=== PATIENT | female | born 1980 | race Caucasian/White ===

== ENCOUNTER 2017-09-23 12:26 | Inpatient (IN) | payer BC ==
[2017-09-23] VITALS (32 sets, daily range): BP systolic 79–126; BP diastolic 35–105; PULSE 64–109; RESP 18; TEMP 97.9–98
[~2017-09-23 12:26] MED LIST: IBUP600 PO; PREN0.01 PO
[2017-09-23] MEDS ORDERED: LACTATED RINGER'S 1000 ML INJ 1,000 ML IV SCH (12:58)
[2017-09-23] MEDS ORDERED: LACTATED RINGER'S 1000 ML INJ 1,000 ML IV PRN (12:58)
[2017-09-23] MEDS ORDERED: OXYTOCIN 30 UNITS-500ML PREMIX 500 ML IV ONE (13:00)
[2017-09-23] MEDS ORDERED: CITRIC ACID-SODIUM CITRATE LIQ 30 ML UDC PO SCH (13:00)
[2017-09-23] MEDS ORDERED: SODIUM CHLORID 0.9% 500 ML INJ 500 ML IV PRN (13:00)
[2017-09-23] MEDS ORDERED: MINERAL OIL 10 ML VIAL TOPICAL PRN (13:00)
[2017-09-23] MEDS ORDERED: LIDOCAINE HCL 1% 50 ML VIAL I-DERMAL PRN (13:00)
[2017-09-23] MEDS ORDERED: LIDOCAINE HCL 1% 50 ML VIAL INFIL PRN (13:00)
[2017-09-23] MEDS ORDERED: OXYTOCIN 30 UNITS-500ML PREMIX 500 ML IV PRN (13:00)
[2017-09-23 13:17] LABS: AUTOMATED NEUTROPHIL # 6.6 TH/MM3 (1.8-7.7); BASOPHIL % 0.5 % (0.0-2.0); EOSINOPHIL # 0.1 TH/MM3 (0-0.4); EOSINOPHIL % 1.3 % (0.0-4.0); HEMATOCRIT 34.2 % (35.0-46.0); HEMOGLOBIN 11.6 GM/DL (11.6-15.3); LYMPH % 15.3 % (9.0-44.0); LYMPHOCYTE # 1.3 TH/MM3 (1.0-4.8); MEAN CELL VOLUME 88.5 FL (80.0-100.0); MEAN CORPUSCULAR HEMOGLOBIN 30.1 PG (27.0-34.0); MEAN PLATELET VOLUME 10.5 FL (7.0-11.0); MONO % 4.2 % (0.0-8.0); MONOCYTE # 0.3 TH/MM3 (0-0.9); NEUT % 78.7 % (16.0-70.0); PLATELET COUNT 153 TH/MM3 (150-450); RED BLOOD COUNT 3.86 MIL/MM3 (4.00-5.30); RED CELL DISTRIBUTION WIDTH 14.1 % (11.6-17.2); WHITE BLOOD COUNT 8.3 TH/MM3 (4.0-11.0)
[2017-09-23] MEDS ORDERED: SODIUM CHLOR 0.9% 1000 ML INJ 1,000 ML IV PRN (13:18)
[2017-09-23 17:08] LABS: BILIRUBIN, URINE NEG (NEG); BLOOD, URINE NEG (NEG); GLUCOSE,URINE NEG (NEG); KETONE, URINE NEG (NEG); NITRITE,URINE NEG (NEG); PH, URINE 6.5 (5.0-8.5); SQUAMOUS EPITHELIAL CELL URINE <1 /hpf (0-5); URINE COLOR LIGHT-YELLOW (YELLW/STRAW); URINE LEUKOCYTE ESTERASE NEG (NEG)
--- NOTE | 2017-09-23 17:29 | PD.LABORPN ---
Subjective Subjective not having painful contractions comfortable on 4 mu/min pitocin Objective Vital Signs Vital Signs Date Time Temp Pulse Resp B/P (MAP) Pulse Ox O2 Delivery O2 Flow Rate FiO2 09/23/17 15:45 74 105/64 (78) 09/23/17 14:00 18 09/23/17 13:53 86 105/53 (70) 09/23/17 13:31 98.0 Objective 2/50%/-1 arom clear EFW 8 pounds pelvis proven Weeks Gestation: 40 Gest Age Assessed Date: Sep 23, 2017 Gest Age Assessed Time: 17:28 Pt started active labor?: No Medical induction of labor?: Yes Medical induction start date: Sep 23, 2017 Medical induction start time: 13:00 Artificial rupture of membrane: Yes Artificial ROM date: Sep 23, 2017 Artifical ROM time: 17:29 Assessment/Plan Assessment and Plan grand multip at term arom clear anticipate Terri Green MD Sep 23, 2017 17:29
[2017-09-23] MEDS ORDERED: fentaNYL 2MCG-BUPIV 0.125% INJ 100 ML ONE (22:16)
[2017-09-23] MEDS ORDERED: ePHEDrine/NS 25 MG/5 ML SYRINGE ONE ×2 (22:44→23:36)
[2017-09-24] VITALS (24 sets, daily range): BP systolic 93–124; BP diastolic 39–78; PULSE 74–126; RESP 16–18; TEMP 97.7–99.3
--- NOTE | 2017-09-24 02:03 | PD.OB.DELI ---
Weeks gestation: 40 Gest age assessed date: Sep 23, 2017 Gest age assessed time: 17:28 Pt started active labor?: Yes Active labor start date: Sep 23, 2017 Medical induction of labor?: Yes Medical induction start date: Sep 23, 2017 Medical induction start time: 13:00 Artificial rupture of membrane: Yes Artificial ROM date: Sep 23, 2017 Artifical ROM time: 17:29 Anesthesia: Epidural Episiotomy: None Vaginal Delivery: Normal Presentation: Occiput anterior Nuchal Cord: None Delayed cord clamping (45 sec): Yes Infant: Male Delivery date: Sep 24, 2017 Delivery time: 02:02 One Minute : 9 Five Minute : 9 Weight: 8.0 Placenta: Spontaneous delivery Laceration: No lacerations Estimated blood loss: 200 Additional Information Terminal Terri Bermudez MD Sep 24, 2017 02:03
--- NOTE | 2017-09-24 02:08 | HHI.DCPOC ---
Discharge Care Plan Report Symptoms to Your Doctor -Temperature above 100.5 degrees -Redness, of incision or excessive or foul smelling drainage -Unusual pain or calf pain -Increased vaginal bleeding -Painful or difficulty urinating -Feelings of extreme sadness or anxiety after 2 weeks Goals to Promote Your Health * To prevent worsening of your condition and complications * To maintain your health at the optimal level Directions to Meet Your Goals Take your medications as prescribed Follow your dietary instruction Follow activity as directed Ensure plenty of rest for recovery Drink fluids for hydration Keep your appointments as scheduled Take your immunizations and boosters as scheduled If your symptoms worsen call your PCP, if no PCP go to Urgent Care Center or Emergency Room Smoking is Dangerous to Your Health. Avoid second hand smoke Call the 24-hour crisis hotline for domestic abuse at Terri Green MD Sep 24, 2017 02:08
[2017-09-24] MEDS ORDERED: ALUMINUM/MAGNESIUM/SIMETH 30 ML CUP PO PRN (02:15)
[2017-09-24] MEDS ORDERED: BENZOCAINE 20% TOPICAL SPRAY 60 ML CAN TOPICAL PRN (02:15)
[2017-09-24] MEDS ORDERED: OXYTOCIN 30 UNITS-500ML PREMIX 500 ML IV SCH (02:15)
[2017-09-24] MEDS ORDERED: WITCH HAZEL 50%/GLYCERIN 12.5% 40 PAD JAR TOPICAL PRN (02:15)
[2017-09-24] MEDS ORDERED: SODIUM CHLORIDE 0.9% FLUSH 10 ML FLUSH IV FLUSH PRN (02:15)
[2017-09-24] MEDS ORDERED: DOCUSATE SODIUM 50 MG/SENNA 8.6 MG TAB PO PRN (02:15)
[2017-09-24] MEDS ORDERED: ZOLPIDEM TARTRATE 5 MG TAB PO PRN (02:15)
[2017-09-24] MEDS ORDERED: ONDANSETRON ODT 4 MG TAB PO PRN (02:15)
[2017-09-24] MEDS ORDERED: diphenhydrAMINE HCL 50 MG CAP PO ONE (04:30)
[2017-09-24] MEDS: IBUPROFEN 800 MG TAB PO PRN ×3 (04:42→21:45)
[2017-09-24] MEDS ORDERED: diphenhydrAMINE HCL 50 MG CAP PO PRN (06:00)
--- NOTE | 2017-09-24 07:42 | HHI.OB ---
Subjective Post Day: 0 Remarks doing well no pain except mild contractions no tears Objective Vitals/I&O Vital Signs Date Time Temp Pulse Resp B/P (MAP) Pulse Ox O2 Delivery O2 Flow Rate FiO2 09/24/17 04:20 97.7 90 16 104/48 (66) 09/24/17 03:09 18 09/24/17 03:09 99.3 09/24/17 03:00 98 96/60 (72) 09/24/17 03:00 18 09/24/17 02:45 102 103/47 (65) 09/24/17 02:45 18 09/24/17 02:30 109 100/78 (85) 09/24/17 02:30 18 09/24/17 02:15 108 107/42 (63) 09/24/17 02:15 18 09/24/17 01:30 124/48 (73) 09/24/17 01:30 126 09/24/17 01:25 120 09/24/17 01:20 110 09/24/17 01:15 101 09/24/17 01:15 100/58 (72) 09/24/17 01:00 111 103/56 (72) 09/24/17 01:00 112 09/24/17 00:50 111 09/24/17 00:45 96 106/48 (67) 09/24/17 00:45 96 09/24/17 00:40 100 09/24/17 00:35 93 09/24/17 00:30 98.2 102/43 (62) 09/24/17 00:30 114 09/24/17 00:25 98 09/24/17 00:20 93 09/24/17 00:15 97 09/24/17 00:15 99 93/40 (57) 09/24/17 00:10 93 09/24/17 00:05 89 09/24/17 00:00 88 96/39 (58) 09/23/17 23:55 97 95/41 (59) 09/23/17 23:50 91 96/38 (57) 09/23/17 23:45 100 98/51 (67) 09/23/17 23:40 80 09/23/17 23:40 77 94/39 (57) 09/23/17 23:35 92 09/23/17 23:30 82 3/5/18 23:30 105/59 (74) 09/23/17 23:25 88 09/23/17 23:25 100/64 (76) 09/23/17 23:20 102/60 (74) 09/23/17 23:20 75 09/23/17 23:15 85 99/58 (72) 09/23/17 23:10 86 09/23/17 23:10 79 106/54 (71) 09/23/17 23:05 82 102/53 (69) 09/23/17 23:05 77 09/23/17 23:01 84 100/56 (71) 09/23/17 23:00 77 09/23/17 22:59 95/54 (68) 09/23/17 22:50 73 09/23/17 22:50 109/54 (72) 09/23/17 22:49 72 79/40 (53) 09/23/17 22:46 71 85/35 (52) 09/23/17 22:45 64 87/41 (56) 09/23/17 22:43 73 94/47 (63) 09/23/17 22:40 90 94/43 (60) 09/23/17 22:35 108 09/23/17 22:35 109 114/64 (81) 09/23/17 22:31 106 126/87 (100) 09/23/17 22:13 98 123/72 (89) 09/23/17 21:34 87 110/62 (78) 09/23/17 21:30 123/105 (111) 09/23/17 21:08 81 115/70 (85) 09/23/17 20:15 97.9 18 09/23/17 20:14 90 115/63 (80) 09/23/17 15:45 74 105/64 (78) 09/23/17 14:00 18 09/23/17 13:53 86 105/53 (70) 09/23/17 13:31 98.0 Objective Remarks GENERAL: Well-nourished, well-developed patient. CARDIOVASCULAR: Regular rate and rhythm without murmurs, gallops, or rubs. RESPIRATORY: Breath sounds equal bilaterally. No accessory muscle use. ABDOMEN/GI: Abdomen soft, non-tender. Fundus: Firm, non-tender at umbilicus. GENITOURINARY: Light to moderate bleeding. EXTREMITIES: No cyanosis or edema, non-tender, without signs of DVT. Medications and IVs Current Medications Medications (Trade) Dose Ordered Sig/Gabrielle Route Start Time Stop Time Status Last Admin Lactated Ringer's 1,000 ml @ 125 mls/hr Q8H IV 09/23/17 12:58 09/23/17 13:54 Lactated Ringer's 1,000 ml @ 3,000 mls/hr Q20M PRN IV 09/23/17 12:58 Sodium Chloride 500 ml @ 1,000 mls/hr ONCE PRN IV 09/23/17 13:00 09/24/17 12:59 Sodium Chloride 1,000 ml @ 100 mls/hr Q10H PRN IV 09/23/17 13:18 (Xylocaine 1% Inj (50 ml)) 0.1 ml UNSCH X1 PRN I-DERMAL 09/23/17 13:00 09/26/17 12:59 (Bicitra Liq) 30 ml RESIDENTIAL PEST CONTROL TECHNICIAN PO 09/23/17 13:00 09/27/17 12:59 (fentaNYL INJ) 50 mcg Q1H PRN IV PUSH 09/23/17 13:00 (fentaNYL INJ) 100 mcg Q1H PRN IV PUSH 09/23/17 13:00 (Xylocaine 1% Inj (50 ml)) 10 ml UNSCH X1 PRN INFIL 09/23/17 13:00 09/25/17 12:59 (Muri-Lube Oil) 10 ml UNSCH PRN TOPICAL 09/23/17 13:00 Oxytocin 500 ml @ 0 mls/hr TITRATE PRN IV 09/23/17 13:00 09/23/17 13:54 (NS Flush) 2 ml BID IV FLUSH 09/24/17 09:00 (NS Flush) 2 ml UNSCH PRN IV FLUSH 09/24/17 02:15 (Tylenol) 650 mg Q4H PRN PO 09/24/17 02:15 (Motrin) 800 mg Q8H PRN PO 09/24/17 02:15 09/24/17 04:42 (Americaine 20% Top Spr) 1 spray Q4H PRN TOPICAL 09/24/17 02:15 09/24/17 04:42 (Tucks Pads) 1 applic QID PRN TOPICAL 09/24/17 02:15 09/24/17 04:41 (Haley-Colace) 2 tab Q12H PRN PO 09/24/17 02:15 (Ambien) 5 mg HS PRN PO 09/24/17 02:15 (M-M-R Ii Inj) 0.5 ml ONCE ONCE SQ 09/24/17 16:00 09/24/17 16:01 (Boostrix Inj) 0.5 ml ONCE ONCE IM 09/24/17 16:00 09/24/17 16:01 (Mag-Al Plus Susp Liq) 15 ml Q8H PRN PO 09/24/17 02:15 (Zofran Odt) 4 mg Q6H PRN PO 09/24/17 02:15 (Benadryl) 50 mg Q6H PRN PO 09/24/17 06:00 Assessment/Plan Assessment and Plan doing well 6 hours post P6 now home in Terri Alvarez MD Sep 24, 2017 07:42
[2017-09-24] MEDS ORDERED: oxyCODONE/ACETAMINOPHEN 5 MG/325 MG TAB PO ONE (08:45)
[2017-09-24] MEDS ORDERED: SODIUM CHLORIDE 0.9% FLUSH 10 ML FLUSH IV FLUSH SCH (09:00)
[2017-09-24] MEDS ORDERED: MEASLES, MUMPS, RUBELLA VACCINE 0.5 ML VIAL SQ ONE (16:00)
[2017-09-24] MEDS ORDERED: DIPHTH/TETANUS/ACEL PERTUSSIS (BOOSTER) 0.5 ML VIAL/PFS IM ONE (16:00)
[2017-09-24] MEDS: ACETAMINOPHEN 325 MG TAB PO PRN (21:46)
[2017-09-25] MEDS: IBUPROFEN 800 MG TAB PO PRN (05:50)
[2017-09-25] MEDS: ACETAMINOPHEN 325 MG TAB PO PRN (05:50)
--- NOTE | 2017-09-25 10:06 | HHI.OB ---
Subjective Post Day: 1 Remarks PPD#1, Stable, plan discharge today. Objective Vitals/I&O Vital Signs Date Time Temp Pulse Resp B/P (MAP) Pulse Ox O2 Delivery O2 Flow Rate FiO2 09/24/17 19:35 97.9 Objective Remarks GENERAL: Well-nourished, well-developed patient. CARDIOVASCULAR: Regular rate and rhythm without murmurs, gallops, or rubs. RESPIRATORY: Breath sounds equal bilaterally. No accessory muscle use. ABDOMEN/GI: Abdomen soft, non-tender. Fundus: Firm, non-tender at umbilicus. GENITOURINARY: Light to moderate bleeding. EXTREMITIES: No cyanosis or edema, non-tender, without signs of DVT. Medications and IVs Current Medications Medications (Trade) Dose Ordered Sig/Gabrielle Route Start Time Stop Time Status Last Admin Lactated Ringer's 1,000 ml @ 125 mls/hr Q8H IV 09/23/17 12:58 09/23/17 13:54 Lactated Ringer's 1,000 ml @ 3,000 mls/hr Q20M PRN IV 09/23/17 12:58 Sodium Chloride 1,000 ml @ 100 mls/hr Q10H PRN IV 09/23/17 13:18 (Xylocaine 1% Inj (50 ml)) 0.1 ml UNSCH X1 PRN I-DERMAL 09/23/17 13:00 09/26/17 12:59 (Bicitra Liq) 30 ml RECLAMATION ENGINEER PO 09/23/17 13:00 09/27/17 12:59 (fentaNYL INJ) 50 mcg Q1H PRN IV PUSH 09/23/17 13:00 (fentaNYL INJ) 100 mcg Q1H PRN IV PUSH 09/23/17 13:00 (Xylocaine 1% Inj (50 ml)) 10 ml UNSCH X1 PRN INFIL 09/23/17 13:00 09/25/17 12:59 (Muri-Lube Oil) 10 ml UNSCH PRN TOPICAL 09/23/17 13:00 Oxytocin 500 ml @ 0 mls/hr TITRATE PRN IV 09/23/17 13:00 09/23/17 13:54 (NS Flush) 2 ml BID IV FLUSH 09/24/17 09:00 (NS Flush) 2 ml UNSCH PRN IV FLUSH 09/24/17 02:15 (Tylenol) 650 mg Q4H PRN PO 09/24/17 02:15 09/25/17 05:50 (Motrin) 800 mg Q8H PRN PO 09/24/17 02:15 09/25/17 05:50 (Americaine 20% Top Spr) 1 spray Q4H PRN TOPICAL 09/24/17 02:15 09/24/17 04:42 (Tucks Pads) 1 applic QID PRN TOPICAL 09/24/17 02:15 09/24/17 04:41 (Haley-Colace) 2 tab Q12H PRN PO 09/24/17 02:15 09/24/17 21:45 (Ambien) 5 mg HS PRN PO 09/24/17 02:15 (Mag-Al Plus Susp Liq) 15 ml Q8H PRN PO 09/24/17 02:15 (Zofran Odt) 4 mg Q6H PRN PO 09/24/17 02:15 (Benadryl) 50 mg Q6H PRN PO 09/24/17 06:00 Assessment/Plan Assessment and Plan PPD#1, stable for discharge,RTO 6 weeks Discharge Planning routine Attending Attestation seen by Emmett Garcia MD Sep 25, 2017 10:06
== END 2017-09-25 12:19 | disposition home or self-care (01) | DRG 775 ==
LOC: H2EB 12:26 → H1EA 09-24 04:08
PROVIDERS: ADMIT Obstetrics & Gynecology; ATTEND Obstetrics & Gynecology
PROC: 3E033VJ Introduction of Other Hormone into Peripheral Vein, Percutaneous Approach (ICD-10-PCS; 2017-09-23)
PROC: 10907ZC Drainage of Amniotic Fluid, Therapeutic from Products of Conception, Via Natural or Artificial Opening (ICD-10-PCS; 2017-09-23)
PROC: 10E0XZZ Delivery of Products of Conception, External Approach (ICD-10-PCS; principal; 2017-09-24)
DX: O77.0 Labor and delivery complicated by meconium in amniotic fluid (principal); Z37.0 Single live birth; Z3A.40 40 weeks gestation of pregnancy
CPT/HCPCS: 59025; 80307; 81001; 85025; 86850; 86900; 86901; 90384; J2590; J2790; J7120; Q0163